=== PATIENT | female | born 1950 | race Caucasian/White ===

== ENCOUNTER → 2016-12-18 | Outpatient (CLI) | payer MEDICARE ==
[2016-12-18 10:21] LABS: HEMOGLOBIN 12.5 g/dL (12.2-16.2)
[2016-12-18 10:22] LABS: LYMPH # 1.1 K/mm3 (0.7-4.5)
[2016-12-18 11:30] VITALS: BP 121/82
[2016-12-18 11:36] VITALS: BP 142/85
[2016-12-18 11:53] LABS: BUN 26 mg/dL (7-18)
[2016-12-18 12:02] LABS: GFR (ESTIMATED) 55 ML/MIN (59-)
--- NOTE | 2016-12-19 10:04 | RADIOLOGY REPORT PS360 ---
EXAM: CT LUNG LOW DOSE WO CONTRAST COMPARISON: None HISTORY: 66 year old female with greater than 30 pack-year smoking history asymptomatic ORDERING PHYSICIAN: YG MUNIZ MD PATIENT AGE: 66 years TECHNIQUE: The exam was performed on a GE Light Speed [address] scanner using 2.95 mGy CTDI. A low dose helical CT CHEST was performed on a multi-detector scanner The LDCT was performed in a facility that meets the criteria for the screening program. Data regarding this exam was submitted to [employer] which is an approved registry. The order for this exam indicates that it came as a result of a lung cancer screening counseling shard decision-making visit that included all the elements required of such a visit including smoking cessation. The radiologist interpreting this exam meets the [facility] criteria for the LDCT lung cancer screening program. The exam is reported using the Lung-RADS classification scale and reported to the ACR registry. NOTE: This study was performed for the specific purposes of lung cancer screening and is not an alternative to diagnostic chest CT. RADIATION DOSE: CTDI vol(CT dose Index-volume) = 2.95mG DLP (Dose Length Product) = 115.24 mGcm FINDINGS: Severe centrilobular emphysematous changes. Old granulomatous disease with calcified granulomas. 9 x 5 mm somewhat flat-like opacity in the right upper lobe inferiorly and anteriorly irregular in nature. 4 mm subpleural nodular density right lower lobe. 8 x 4.5 mm subpleural nodular opacity left lower lobe laterally 6 mm groundglass opacity left upper lobe inferiorly Calcified nodes are present in the mediastinum and laurel. Coronary artery calcifications are present. IMPRESSION: 1. Lung RADS Category: 4A mildly suspicious (5-15% chance of malignancy) 2. Other findings: Centrilobular emphysematous change. Coronary artery disease. Old granulomatous disease RECOMMENDATIONS: [address] of the chest without and with contrast.
== END ==
LOC: RAD 09:00 → RT 10:00
PROVIDERS: Internal Medicine
DX: Z87.891 Personal history of nicotine dependence (principal); Z12.2 Encounter for screening for malignant neoplasm of respiratory organs
CPT/HCPCS: G0297